=== PATIENT | male | born 2000 | race Native Hawaiian/Other Pacific Islander ===

== ENCOUNTER 2020-12-22 10:29 | Emergency (ER) | payer SELFPAY ==
[2020-12-22] MEDS ORDERED: LIDOCAINE 2%/EPINEPHRINE 1:200,000 VIAL (20 ML) INFILTRATI SCH (11:00)
[2020-12-22] MEDS ORDERED: LIDOCAINE (2%) 20 MG/1 ML VIAL 20 ML MDV INFILTRATI ONE (11:05)
--- NOTE | 2020-12-22 11:21 | Emergency Department Report ---
ED Laceration HPI - HPI Chief Complaint: Wound/Laceration Stated Complaint: RT LEG INJURY/CUT Time Seen by Provider: 12/22/20 10:34 Occurred When: Today Location: Lower Extremity Severity: mild Tetanus Status: Not up to Date Laceration Symptoms: Yes Pain, No Foreign Body Sensation, No Numbness, No Weakness Other History: This is a 20-year-old male nontoxic, well nourished in appearance, no acute signs of distress presents to the ED with c/o of right thigh lac that occurred today at work [employer]. 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 Patient denies decreased sensation or range of motion. Patient stated bleeding is under control. Denies any numbness, tingling, fever, chills, nausea, vomiting, chest pain, shortness of breath, headache or stiff neck. Patient denies any allergies to significant past medical history. Patient is that he is not up-to-date with tetanus. ED Review of Systems ROS: Stated complaint: RT LEG INJURY/CUT Other details as noted in HPI Comment: All other systems reviewed and negative Constitutional: denies: chills, fever Eyes: denies: eye pain, eye discharge, vision change ENT: denies: ear pain, throat pain Respiratory: denies: cough, shortness of breath, wheezing Cardiovascular: denies: chest pain, palpitations Endocrine: no symptoms reported Gastrointestinal: denies: abdominal pain, nausea, diarrhea Genitourinary: denies: urgency, dysuria Musculoskeletal: denies: back pain, joint swelling, arthralgia Skin: denies: rash, lesions Neurological: denies: headache, weakness, paresthesias Psychiatric: denies: anxiety, depression Hematological/Lymphatic: denies: easy bleeding, easy bruising ED Past Medical Hx - Past Medical History Previous Medical History?: Yes Hx Asthma: Yes - Surgical History Past Surgical History?: No - Medications Home Medications: Home Medications Medication Instructions Recorded Confirmed Last Taken Type Naproxen 500 mg PO Q12H PRN #12 tablet 12/22/20 Unknown Rx Laceration Physical Exam - Exam General: Vital signs noted. No distress. Alert and acting appropriately. Wound Length (cm): 3 (right thigh superifical) Laceration Location: Lower Extremity Full Body Front + Back: 1 - 3 cm lac Laceration Exam: Yes Normal Distal CMS, No Foreign Body, No Exposed Tendon, Vessel, or Nerve, No Tendon Injury ED Course Vital Signs 12/22/20 10:32 Temperature 97.5 F L Pulse Rate 88 Respiratory 18 Rate Blood Pressure 141/63 O2 Sat by Pulse 99 Oximetry - Reevaluation(s) Reevaluation #1: 12/22/20 11:18 Patient is speaking in full sentences with no signs of distress noted. - Laceration /Wound Repair Right Thigh Wound Location: lower extremity (Right thigh) Wound Length (cm): 3 Wound's Depth, Shape: superficial Wound Explored: clean Irrigated w/ Saline (ccs): 40 Betadine Prep?: Yes Volume Anesthetic (ccs): 5 (2% lidocaine plain) Number of Sutures: 4 (ranjith) Layer Closure?: No Sterile Dressing Applied?: Yes Progress: Under sterile field, I used Betadine to clean the area. I then used 40 mL of normal saline to flush the area. I then used 2% lidocaine plain and injected 5 mL to the wound. I then used a stapler with a total of 4 ranjith placed. I then applied a sterile 4 x 4 with tape. Minimal bleeding noted but is under control. Patient tolerated procedure well with no signs of distress. ED Medical Decision Making - Medical Decision Making This is a 35-year-old male that presents with laceration. Patient is stable and was examined by me. The laceration suturing has been performed and has been performed and patient tolerated well. A sterile dressing has been applied. Patient was educated on proper wound care. Patient was instructed to return in 10 days for staple removal. Patient was instructed to refer to Follow-up with a primary care doctor in 3-5 days or if symptoms worsen and continue return to [facility] room as soon as possible. At time of discharge, the patient does not seem toxic or ill in appearance. No acute signs of distress noted. Patient agrees to discharge treatment plan of care. No further questions noted by the patient. Critical care attestation.: If time is entered above; I have spent that time in minutes in the direct care of this critically ill patient, excluding procedure time. ED Disposition Clinical Impression: Laceration Disposition: 01 HOME / SELF CARE / HOMELESS Is pt being admited?: No Does the pt Need Aspirin: No Condition: Stable Instructions: Laceration Care, Adult, Sutures, Ranjith, or Adhesive Wound Closure, [id number] Additional Instructions: Follow-up with a primary care doctor in 3-5 days or if symptoms worsen and continue return to emergency room as soon as possible. Return in 10 days for staple removal. Prescriptions: Naproxen 500 mg PO Q12H PRN #12 tablet PRN Reason: Pain , Severe (7-10) Referrals: PRIMARY CAREMD [Referring] - 3-5 Days LILIANA ROBERT MD [Staff Physician] - 3-5 Days Forms: Work/School Release Form(ED) Time of Disposition: 11:23
[2020-12-22 11:49] VITALS: BP 117/55
[2020-12-22] MEDS ORDERED: HYDROcodone/ACETAMINOPHEN 10-325MG TAB PO SCH (12:00)
[2020-12-22] MEDS ORDERED: TETANUS,DIPH,PERTUSS(ACELL) VACCINE 0.5 ML SYRINGE IM ONE (13:00)
== END 2020-12-22 12:30 | disposition home or self-care (01) ==
LOC: ED 10:29
DX: S71.111A Laceration without foreign body, right thigh, initial encounter (principal); W26.0XXA Contact with knife, initial encounter; Y93.89 Activity, other specified; Y92.89 Other specified places as the place of occurrence of the external cause; Y99.0 Civilian activity done for income or pay
CPT/HCPCS: 90471; 90715; 99282

== ENCOUNTER 2020-12-30 16:16 | Emergency (ER) | payer SELFPAY ==
--- NOTE | 2020-12-30 17:25 | Emergency Department Report ---
Suture/Staple Removal - HPI Chief Complaint: Laceration/Recheck/Suture Stated Complaint: SUTURE REMOVAL Time Seen by Provider: 12/30/20 17:14 When Sutures or Ranjith Placed: 12/22/2020 Wound Location: right anterior thigh ED Review of Systems ROS: Stated complaint: SUTURE REMOVAL Other details as noted in HPI Comment: All other systems reviewed and negative ED Past Medical Hx - Past Medical History Hx Asthma: Yes - Social History Smoking Status: Never Smoker Substance Use Type: None - Medications Home Medications: Home Medications Medication Instructions Recorded Confirmed Last Taken Type Naproxen 500 mg PO Q12H PRN #12 tablet 12/22/20 Unknown Rx Suture Removal Exam - Exam General: Vital signs noted. No distress. Alert and acting appropriately. Wound: No Pathologic Erythema, No Tenderness, No Drainage, No Pus, No Wound Dehiscence Other Systems: All other systems reviewed and are unremarkable. ED Course Vital Signs 12/30/20 17:16 Temperature 98.0 F Pulse Rate 58 L Respiratory 16 Rate Blood Pressure 121/77 [Right] O2 Sat by Pulse 95 Oximetry ED Recheck MDM - Medical Decision Making Patient is a 20-year-old male presents emergency room complaints of staple removal. He had the ranjith placed on 12/22/2020. He states he accidentally cut himself with a knife. Patient states he was given a tetanus immunization. He denies any increased pain, increased swelling, fever, chills, drainage. On exam there are [address] to the right anterior thigh, no erythema, no wound dehiscence, no induration, no drainage, no crepitus. All ranjith removed without any difficulty or complications. Dressing placed on top. Discussed wound care with patient. Advised to follow-up with a primary care doctor and return to emergency room for any new or worsening symptoms. Critical care attestation.: If time is entered above; I have spent that time in minutes in the direct care of this critically ill patient, excluding procedure time. ED Disposition Clinical Impression: Removal of ranjith Disposition: 01 HOME / SELF CARE / HOMELESS Is pt being admited?: No Does the pt Need Aspirin: No Condition: Stable Instructions: Wound Closure Removal, Care After Additional Instructions: Please keep area clean, dry, covered. Wash with antibacterial soap and water pat dry. May use Neosporin or triple antibiotic. Follow-up with a primary care doctor. Return to emergency room for any new or worsening symptoms. Referrals: your, primary care doctor [Other] - 3-5 Days Time of Disposition: 17:24 Print Language: CITIZEN OF [place]
[2020-12-30 18:17] VITALS: BP 137/54
== END 2020-12-30 18:17 | disposition home or self-care (01) ==
LOC: ED 16:16
DX: S71.111D Laceration without foreign body, right thigh, subsequent encounter (principal); J45.909 Unspecified asthma, uncomplicated; Z79.899 Other long term (current) drug therapy; X58.XXXD Exposure to other specified factors, subsequent encounter
CPT/HCPCS: 99282